=== PATIENT | male | born 1970 | race Caucasian/White ===

== ENCOUNTER 2016-07-23 08:24 | Inpatient (IN) | payer BC, OTHER ==
[2016-07-18 10:29] VITALS: BMI 24.0
--- NOTE | 2016-07-18 10:50 | PAT Medication Instructions ---
Service Date Jul 18, 2016. Current Home Medication List Ibuprofen (Ibuprofen), 4 TAB PO QID PRN for Pain Naproxen (Aleve), 220 MG PO QID Medication Instructions For Your Scheduled Surgery - Hold the following medications the morning of surgery: Ibuprofen (Ibuprofen), 4 TAB PO QID PRN for Pain Naproxen (Aleve), 220 MG PO QID Nothing to eat or drink after midnight No chewing tobacco after midnight If you have any questions please call us at [phone] (Serena Harrison PA-C ) or [phone] or [phone]
[2016-07-18 11:40] LABS: URINE APPEARANCE CLEAR (CLEAR); URINE BILIRUBIN NEG (NEG); URINE COLOR YELLOW; URINE NITRITE NEG (NEG); URINE SPECIFIC GRAVITY 1.019 (1.000-1.030); UROBILINOGEN NEG (NEG)
[2016-07-18 11:41] LABS: BASO % 0.7 %; BASO ABS # 0.06 K/uL (0-0.2); COMPLETE YES; EOS % 1.7 %; HEMATOCRIT 43.7 % (42-52); IG% 0.1 %; LYMPH % 25.8 %; LYMPH ABS # 2.27 K/uL (1.2-3.4); MEAN CELL VOLUME 93.6 fL (80-100); MEAN CORPUSCULAR HEMOGLOBIN 32.5 pg (25-34); MEAN CORPUSCULAR HGB CONC 34.8 g/dl (32-36); MEAN PLATELET VOLUME 12.2 fL (7.4-10.4); NEUT % 64.7 %; PLATELET COUNT 247 K/uL (130-400); RED BLOOD COUNT 4.67 M/uL (4.7-6.1); WHITE BLOOD COUNT 8.81 K/uL (4.8-10.8)
[2016-07-18 11:50] LABS: MANUAL MICROSCOPIC REQUIRED? NO; REVIEW REQ? NO
--- NOTE | 2016-07-18 12:00 | DIAGNOSTIC IMAGING REPORT ---
CHEST 2 VIEWS ROUTINE HISTORY: Preop. COMPARISON: Chest 03/29/2014. FINDINGS: The lungs are clear. Cardiac silhouette is normal in size. No pleural effusions. No pneumothorax. IMPRESSION: No acute process. Electronically signed by: Anselmo Quiñonez M.D. 07/18/2016 11:58 AM Dictated Date/Time: 07/18/2016 11:56 AM
[2016-07-18 12:12] LABS: CALCIUM 9.2 mg/dl (8.5-10.1); CREATININE 1.1 mg/dl (0.60-1.40); POTASSIUM 4.3 mmol/L (3.5-5.1)
--- NOTE | 2016-07-22 12:14 | HISTORY & PHYSICAL EXAMINATION ---
DATE OF ADMISSION: 07/23/2016 The patient is well known to us. He continues to have lower back pain. He has trialed facet injections with Dr. Diaz without any long-lasting relief. He has had a dorsal column stimulator trial with Dr. Diaz which did temporarily relieved his symptoms. He has taken anti-inflammatory medication for pain control. MEDICAL HISTORY: Significant for none. SURGICAL HISTORY: Significant for 2 back surgeries. ALLERGIES: None. MEDICATIONS: Anti-inflammatories. SOCIAL HISTORY: Denies alcohol. Denies tobacco. REVIEW OF SYSTEMS: Significant for chronic back pain. FAMILY HISTORY: Noncontributory. PHYSICAL EXAMINATION: HEENT: Speech appropriate. CARDIOPULMONARY: No gross abnormalities. ABDOMEN: Soft, nondistended. GENITOURINARY: Deferred. NEUROLOGIC: Cranial nerves II-XII grossly intact. MUSCULOSKELETAL: Ambulates with an independent steady gait. Lumbar incisions are well healed. Strength is intact bilateral lower extremities. ASSESSMENT: Post-laminectomy syndrome, lumbar spine. PLAN: At this point in time, he had a successful dorsal column stimulator trial. We will therefore proceed with spinal cord stimulator implant. This will result in T10 laminectomy as well. Risks, benefits, pros, cons, and alternatives were outlined in detailed. He wants to proceed with the above-mentioned surgical intervention.
[2016-07-23] VITALS (9 sets, daily range): BP systolic 95–133; BP diastolic 52–79; PULSE 57–84; TEMP 36.4–36.9; O2SAT 94–99; Ht 190.5 cm; Wt 89.7 kg
[~2016-07-23] VITALS: Ht 190.5 cm; Wt 89.7 kg
--- NOTE | 2016-07-23 07:25 | History & Physical Bridge Note ---
H&P Re-Evaluation Bridge Note: I have examined the patient, reviewed the History & Physical and in the interval since the performance of the History & Physical I have noted the following changes of clinical significance: No changes noted
[~2016-07-23 08:24] MED LIST: CEFAZOLIN IV 2,000 MG in DEXTROSE 5% 50ML 50 ML IV SCH; FENTANYL CITRATE INJ 50 MCG/1 ML 2 ML VIAL ONE; IBUP1CAP9 PO; LACTATED RINGER'S 1000ML 1,000 ML IV SCH; MIDAZOLAM HCL 1 MG/ML 2ML VIAL ONE; NAPR1TAB9 PO
[2016-07-23] MEDS ORDERED: MEPERIDINE HCL 25 MG/ML CARP IV PRN (09:00)
[2016-07-23] MEDS ORDERED: EpHEDrine SULFATE INJ 50 MG/ML AMP IV PRN (09:00)
[2016-07-23] MEDS ORDERED: PHENYLEPHRINE 100MCG/ML 5ML SYR IV PRN (09:00)
[2016-07-23] MEDS ORDERED: ONDANSETRON INJ 2 MG/ML 2 ML VIAL IV PRN (09:00)
[2016-07-23] MEDS ORDERED: LABETALOL HCL IV 5 MG/ML 20ML IV PRN (09:00)
[2016-07-23] MEDS ORDERED: FLUMAZENIL 0.1 MG/1 ML 10 ML VIAL IV PRN (09:00)
[2016-07-23] MEDS ORDERED: ATROPINE SULFATE 0.1 MG/ML 5ML SYR IV PRN (09:00)
[2016-07-23] MEDS ORDERED: HYDROmorphone INJ 2 MG/ML SYR/VIAL IV PRN ×2 (09:00→12:15)
[2016-07-23] MEDS ORDERED: NALOXONE HCL 0.4 MG/1 ML VIAL/CARP IV PRN (09:00)
[2016-07-23] MEDS ORDERED: NURSING VERBAL MED ORDER ONE ×2 (09:15→14:30)
[2016-07-23] MEDS: CEFAZOLIN 2000 MG/60 ML D5W IV SCH ×2 (09:43→11:30)
[2016-07-23] MEDS ORDERED: DEXAMETHASONE SOD INJ 4 MG/ML VIAL ONE (10:11)
[2016-07-23] MEDS ORDERED: NEOSTIGMINE METHYLSULFATE 1 MG/ML 10ML VIAL ONE (10:11)
[2016-07-23] MEDS ORDERED: LARYING-O-JET KIT (LTA) EXT ONE ×2 (10:11)
[2016-07-23] MEDS ORDERED: ONDANSETRON INJ 2 MG/ML 2 ML VIAL ONE (10:11)
[2016-07-23] MEDS ORDERED: GLYCOPYRROLATE INJ 0.2 MG/ML VIAL ONE (10:11)
[2016-07-23] MEDS ORDERED: PROPOFOL IV EMULSION 10 MG/ML 20 ML VIAL IV ONE (10:11)
[2016-07-23] MEDS ORDERED: LIDOCAINE HCL 2% 2 ML VIAL (20MG/ML) ONE (10:11)
[2016-07-23] MEDS ORDERED: ROCURONIUM BROMIDE 10 MG/ML 5 ML VIAL ONE (10:11)
[2016-07-23] MEDS ORDERED: HYDROmorphone INJ 2 MG/ML SYR/VIAL ONE (10:12)
--- NOTE | 2016-07-23 10:49 | [facility] Post Operative Brief Note ---
Immediate Operative Summary Operative Date Jul 23, 2016. Pre-Operative Diagnosis Post-laminectomy syndrome, lumbar spine Post-Operative Diagnosis Post-laminectomy syndrome, lumbar spine Procedure(s) Performed Spinal Cord Stimulator Trial Surgeon Dr. Duane Pedro Cotton Opener Surgeon(s) Dianna Mario PA-C Estimated Blood Loss 10 Findings none Specimens None per surgeon
[2016-07-23] MEDS ORDERED: BUPIVACAINE/EPINEPHRINE 0.5% MPF 1:200,000 30 ML VIAL INJ ONE (10:54)
[2016-07-23] MEDS ORDERED: [UNRECOGNIZED DRUG - MIXTURE] IV ONE (10:54)
[2016-07-23] MEDS ORDERED: BACITRACIN 50000 UNIT VIAL IR ONE (10:54)
[2016-07-23] MEDS ORDERED: MAGNESIUM HYDROXIDE SUSP 30 ML UDC PO PRN (11:00)
[2016-07-23] MEDS ORDERED: DO NOT ADMINISTER PNEUMOCOCCAL VACCINE PRN ×2 (11:00)
[2016-07-23] MEDS ORDERED: DO NOT ADMINISTER FLU VACCINE PRN ×3 (11:00)
[2016-07-23] MEDS ORDERED: LORAZEPAM INJ 1 MG in SYRINGE 0.5 ML IV PRN (11:00)
[2016-07-23] MEDS ORDERED: ACETAMINOPHEN 325 MG TAB PO PRN (11:00)
[2016-07-23] MEDS ORDERED: ACETAMINOPHEN 500 MG TAB PO PRN (11:00)
[2016-07-23] MEDS: FENTANYL CITRATE INJ 50 MCG/1 ML 2 ML VIAL IV PRN ×4 (11:09→11:30)
--- NOTE | 2016-07-23 11:27 | Anesthesiology Progress Note ---
Anesthesia Post Op Note Date & Time Jul 23, 2016 at 11:27 Vital Signs Pain Intensity: 4 Vital Signs Past 12 Hours Date Time Temp Pulse Resp B/P Pulse Ox O2 Delivery O2 Flow Rate FiO2 07/23/16 11:13 121/74 07/23/16 11:12 52 15 07/23/16 11:12 54 15 100 07/23/16 11:08 131/63 07/23/16 11:07 53 16 100 07/23/16 11:07 52 16 07/23/16 11:03 114/75 07/23/16 11:02 57 20 07/23/16 11:02 57 20 97 07/23/16 10:58 115/74 07/23/16 10:57 36.1 57 14 118/71 99 Mask 10 07/23/16 10:57 54 12 07/23/16 10:57 53 12 95 07/23/16 08:44 36.4 61 18 133/79 99 Room Air Notes Mental Status: alert / awake / arousable, participated in evaluation Pt Amnestic to Procedure: Yes Nausea / Vomiting: adequately controlled Pain: adequately controlled Airway Patency, RR, SpO2: stable & adequate BP & HR: stable & adequate Hydration State: stable & adequate Anesthetic Complications: no major complications apparent
--- NOTE | 2016-07-23 12:25 | OPERATIVE REPORT ---
DATE OF OPERATION: 07/23/2016 PREOPERATIVE DIAGNOSIS: Chronic persistent back and bilateral leg pain. POSTOPERATIVE DIAGNOSIS: Same. PROCEDURES PERFORMED: 1. T9 laminotomy. 2. Placement of 16-lead dorsal column stimulator paddle at T9 with attachment to external lead. SURGEON: Dr. Duane Pedro. ORDER MANAGER: Dainna Kumar PA-C. Due to the complex nature of the procedure, the entire surgery was performed with the equal opportunity assistant of DORITA Harrison. The golf player assistant, under direct supervision, was involved in the actual performance of all aspects of the surgical procedure including hemostasis, tissue retraction and incision, instrument management, patient positioning, and wound closure. ANESTHESIA: General. DISPOSITION: The patient awakened and taken to PACU in stable condition. HISTORY OF PATIENT'S PROBLEMS: This is a 46-year-old male well known to me that presents with the above-mentioned diagnosis. After failing an extensive course of nonoperative care, we elected to undergo a dorsal column stimulator trial. Risks, benefits, pros, cons, and alternatives were outlined in detail preoperatively. DESCRIPTION OF PROCEDURE: The patient was met with preoperatively, case discussed and all questions were addressed. At that point, the patient was taken back to operative suite and after undergoing successful general intubation by the department of anesthesia, he was placed in prone position on João table atop Gautam frame. All bony prominences were well padded and the eyes were inspected to ensure there was no external pressure placed upon them. At this point, the thoracolumbar spine was prepped and draped in normal sterile fashion. With the assistance of fluoroscopy, we identified the T9-T10 pedicles. He did elect at this point to begin the laminotomy at T9 to ensure that we had the cephalad leads on the paddle well above the C7 pedicles. This will allow us to adequately cover any actual back pain. Subsequently, T9 laminotomy was created and we were able to pass the dorsal column paddle lead without difficulty just above the T7 pedicles. We verified out position with fluoroscopy. We then attached the temporary leads to the implant, assessed their viability and then tunneled off to the left, passing the leads to the left flank externally. We then copiously irrigated the laminotomy site and closed the incision with 1 Vicryl in the fascia and 2-0 Vicryl subcutaneously, 4-0 Monocryl for final skin closure. The patient was awakened and taken to PACU in stable condition. I attest to the content of the Intraoperative Record and any orders documented therein. Any exceptio ns are noted below.
[2016-07-23] MEDS: LACTATED RINGER'S 1000ML 1,000 ML IV SCH (13:28)
--- NOTE | 2016-07-23 13:52 | DIAGNOSTIC IMAGING REPORT ---
Thoracic SPINE, INTRAOPERATIVE FLUOROSCOPY HISTORY: Spinal stimulator placement.. FLUOROSCOPY TIME: 8 seconds.. FINDINGS: Intraoperative fluoroscopy was provided for the thoracic spine. A single fluoroscopic spot image was obtained. There are stimulators wires noted within the lower thoracic spine. The exact level is difficult to determine given the small [id number]. IMPRESSION: Fluoroscopy provided for a placement of a spinal stimulator lead.. Electronically signed by: Anselmo Quiñonez M.D. 07/23/2016 1:50 PM Dictated Date/Time: 07/23/2016 1:48 PM
[2016-07-23] MEDS ORDERED: NICOTINE 21 MG/24 HR TDSY EXT ONE (14:45)
[2016-07-23] MEDS: OXYCODONE HCL IR 5 MG TAB (IMMEDIATE RELEASE) PO PRN ×2 (16:48→20:46)
[2016-07-23] MEDS: CEFAZOLIN IV 2,000 MG in DEXTROSE 5% 50ML 50 ML IV SCH (18:36)
[2016-07-23] MEDS: DOCUSATE SODIUM 100 MG CAP PO SCH (20:46)
[2016-07-23] MEDS: LORAZEPAM 1 MG TAB PO PRN (22:15)
[2016-07-24] MEDS: CEFAZOLIN IV 2,000 MG in DEXTROSE 5% 50ML 50 ML IV SCH ×2 (01:33→10:10)
[2016-07-24] MEDS: LACTATED RINGER'S 1000ML 1,000 ML IV SCH (01:34)
[2016-07-24] MEDS: OXYCODONE HCL IR 5 MG TAB (IMMEDIATE RELEASE) PO PRN ×3 (01:37→14:30)
[2016-07-24 03:19] VITALS: BP 95/51; PULSE 76; TEMP 36.7; O2SAT 95
[2016-07-24 06:56] VITALS: BP 115/70; PULSE 62; TEMP 36.5; O2SAT 99
[2016-07-24] MEDS ORDERED: NURSING VERBAL MED ORDER ONE ×2 (07:15→14:45)
[2016-07-24] MEDS: NICOTINE 21 MG/24 HR TDSY EXT SCH (07:58)
[2016-07-24] MEDS: HYDROmorphone INJ 1 MG/ML SYR IV PRN ×3 (08:29→21:05)
[2016-07-24] MEDS: DOCUSATE SODIUM 100 MG CAP PO SCH ×2 (08:29→21:41)
--- NOTE | 2016-07-24 10:27 | Anesthesiology Progress Note ---
Anesthesia Post Op Note Date & Time Jul 24, 2016 at 10:27 Vital Signs Vital Signs Past 12 Hours Date Time Temp Pulse Resp B/P Pulse Ox O2 Delivery O2 Flow Rate FiO2 07/24/16 08:00 Room Air 07/24/16 06:56 36.5 62 14 115/70 99 Room Air 07/24/16 03:19 36.7 76 16 95/51 95 Room Air 07/23/16 23:40 Room Air 07/23/16 23:16 36.9 82 16 95/52 97 Room Air Notes Mental Status: alert / awake / arousable, participated in evaluation Pt Amnestic to Procedure: Yes Nausea / Vomiting: adequately controlled Pain: adequately controlled Airway Patency, RR, SpO2: stable & adequate BP & HR: stable & adequate Hydration State: stable & adequate Anesthetic Complications: no major complications apparent
[2016-07-24 11:20] VITALS: BP 125/77; PULSE 58; TEMP 36.8; O2SAT 98
--- NOTE | 2016-07-24 12:43 | PROGRESS NOTE ---
DATE: 07/24/2016 Postop day 1. The patient has had significant results from his dorsal column stimulator trial. He has had it adjusted on several occasions and feels it is quite beneficial. Subsequently, we will make him n.p.o. after midnight tonight and plan for implantation of permanent implant tomorrow.
--- NOTE | 2016-07-24 13:30 | Anesthesiology Progress Note ---
Pre-OP Anesthesia Assessment Date of Note Jul 24, 2016. Review patient information reviewed, chart reviewed, labs reviewed, acceptable for surgery Notes The patient was seen and examined, the chart reviewed. He is acceptable for surgery tomorrow.
[2016-07-24] MEDS ORDERED: RXC5 PO (14:29)
--- NOTE | 2016-07-24 14:30 | Discharge Instructions ---
Discharge Instructions Admission Reason for Admission: Lumbar Post Laminectomy Syndrome Discharge Discharge Diagnosis / Problem: chronic back pain Discharge Goals Goal(s): Improve function Activity Recommendations Activity Limitations: per Instructions/Follow-up section . Current Hospital Diet Patient's current hospital diet: Regular Diet Discharge Diet Recommended Diet: Regular Diet Procedures Procedures Performed: Spinal Cord Stimulator Trial T-9 Laminectomy Pending Studies Studies pending at discharge: no Medical Emergencies . Who to Call and When: Medical Emergencies: If at any time you feel your situation is an emergency, please call 911 immediately. . Non-Emergent Contact Non-Emergency issues call your: Primary Care Provider . "Provider Documentation" section prepared by Duane Pedro. VTE Core Measure Inpt VTE Proph given/why not?: Ad Reese, SCD's
[2016-07-24] MEDS ORDERED: BISACODYL 10 MG SUPP PR ONE (14:45)
[2016-07-24 15:41] VITALS: BP 135/93; PULSE 79; TEMP 36.6; O2SAT 98
[2016-07-24 23:25] VITALS: BP 115/68; PULSE 75; TEMP 36.6; O2SAT 96
[2016-07-24] MEDS: LORAZEPAM 1 MG TAB PO PRN (23:46)
[2016-07-25] MEDS ORDERED: BISACODYL 5 MG TABEC PO PRN (06:00)
[2016-07-25] MEDS ORDERED: BISACODYL 10 MG SUPP PR PRN (06:00)
[2016-07-25] MEDS ORDERED: DEXAMETHASONE SOD INJ 4 MG/ML VIAL ONE (06:33)
[2016-07-25] MEDS ORDERED: LIDOCAINE HCL 2% 2 ML VIAL (20MG/ML) ONE (06:33)
[2016-07-25] MEDS ORDERED: ONDANSETRON INJ 2 MG/ML 2 ML VIAL ONE (06:34)
[2016-07-25] MEDS ORDERED: GLYCOPYRROLATE INJ 0.2 MG/ML VIAL ONE (06:34)
[2016-07-25] MEDS ORDERED: ROCURONIUM BROMIDE 10 MG/ML 5 ML VIAL ONE (06:34)
[2016-07-25] MEDS ORDERED: MIDAZOLAM HCL 1 MG/ML 2ML VIAL ONE (06:34)
[2016-07-25] MEDS ORDERED: FENTANYL CITRATE INJ 50 MCG/1 ML 2 ML VIAL ONE (06:34)
[2016-07-25] MEDS ORDERED: NEOSTIGMINE METHYLSULFATE 1 MG/ML 10ML VIAL ONE (06:34)
[2016-07-25] MEDS ORDERED: PROPOFOL IV EMULSION 10 MG/ML 20 ML VIAL IV ONE (06:34)
[2016-07-25] MEDS ORDERED: LARYING-O-JET KIT (LTA) EXT ONE ×2 (06:44)
[2016-07-25] MEDS ORDERED: SODIUM CHLORIDE 0.9% INJ 10 ML VIAL ONE (06:44)
[2016-07-25] MEDS ORDERED: KETAMINE HCL INJ 50 MG/ML 10 ML VIAL ONE (06:44)
[2016-07-25] MEDS ORDERED: CEFAZOLIN IV 2,000 MG/60 ML D5W IV ONE (07:21)
[2016-07-25] MEDS ORDERED: NURSING VERBAL MED ORDER STA (07:26)
[2016-07-25] MEDS ORDERED: BUPIVACAINE/EPINEPHRINE 0.5% MPF 1:200,000 30 ML VIAL INJ ONE (07:59)
[2016-07-25] MEDS ORDERED: BACITRACIN 50000 UNIT VIAL IR ONE (07:59)
--- NOTE | 2016-07-25 08:11 | [facility] Post Operative Brief Note ---
Immediate Operative Summary Operative Date Jul 25, 2016. Pre-Operative Diagnosis BACK PAIN Post-Operative Diagnosis SAME PREOP Procedure(s) Performed SPINAL CORD STIMULATOR PLACEMENT Surgeon DR. Dayday CORONA Nuclear Licensing Engineer Surgeon(s) Luis Felipe LEHMAN PAC Estimated Blood Loss 5mL Findings none Specimens NONE
[2016-07-25] MEDS ORDERED: ACETAMINOPHEN 325 MG TAB PO PRN (08:15)
[2016-07-25] MEDS ORDERED: HYDROmorphone INJ 1 MG/ML SYR IV PRN ×2 (08:15→08:45)
[2016-07-25] MEDS ORDERED: OXYCODONE HCL IR 5 MG TAB (IMMEDIATE RELEASE) PO PRN (08:15)
[2016-07-25] MEDS ORDERED: IBUPROFEN 600 MG TAB PO PRN (08:15)
--- NOTE | 2016-07-25 08:24 | OPERATIVE REPORT ---
DATE OF OPERATION: 07/25/2016 PREOPERATIVE DIAGNOSES: Failed laminectomy syndrome, chronic persistent back and leg pain. POSTOPERATIVE DIAGNOSES: Same. PROCEDURE PERFORMED: Permanent implantation of dorsal column stimulator leads with rechargeable battery. SURGEON: Dr. Duane Pedro. FINANCIAL COACH: Patrick Garg PA-C. Due to the complex nature of the procedure, the entire surgery was performed with the aquatics assistant department head of DORITA Thomas. The front desk assistant, under direct supervision, was involved in the actual performance of all aspects of the surgical procedure including hemostasis, tissue retraction and incision, instrument management, patient positioning, and wound closure. ANESTHESIA: General. DISPOSITION: The patient awakened and taken to PACU in stable condition. HISTORY OF PATIENT'S PROBLEMS: A 46-year-old male well known to me who underwent a trial for dorsal column stimulator paddle lead placement earlier this week. He responded very well having undergone several adjustments to his paddle lead, subsequently elected to undergo permanent implantation. Risks, benefits, pros, cons, and alternatives were outlined in detail preoperatively. DESCRIPTION OF PROCEDURE: The patient was met with preoperatively, case discussed and all questions were addressed. At that point, the patient was taken back to operative suite and after undergoing successful general intubation by the department of anesthesia was placed in prone position on João table with a chest pad and hip bolsters. The thoracolumbar spine was prepped and draped in normal sterile fashion. The previous incision site for the T10 laminotomy site was exposed, copiously irrigated with antibiotic solution, the temporary leads were detached and remove externally. Then we placed approximately 5 cm incision over the right flank and created a pocket for the battery. The tunneler was used to pass the leads down to the pocket. The leads were then attached to the battery. It was tested for to ensure it was working appropriately. The battery was then placed in the pocket and both sides were copiously irrigated and closed with 1-0 Vicryl in the fascia, 2-0 Vicryl subcutaneously, 4-0 Monocryl for final skin closure. Steri-Strips and sterile dressing placed. The patient was awakened and taken to PACU in stable condition. I attest to the content of the Intraoperative Record and any orders documented therein. Any exceptio ns are noted below.
[2016-07-25] MEDS ORDERED: FENTANYL CITRATE INJ 50 MCG/1 ML 2 ML VIAL IV PRN (08:45)
[2016-07-25] MEDS ORDERED: EpHEDrine SULFATE INJ 50 MG/ML AMP IV PRN (08:45)
[2016-07-25] MEDS ORDERED: ONDANSETRON INJ 2 MG/ML 2 ML VIAL IV PRN (08:45)
[2016-07-25] MEDS ORDERED: ATROPINE SULFATE 0.1 MG/ML 5ML SYR IV PRN (08:45)
[2016-07-25] MEDS ORDERED: POLYETHYLENE (MIRALAX) 17 GM PACK PO SCH (09:00)
--- NOTE | 2016-07-25 09:27 | Anesthesiology Progress Note ---
Anesthesia Post Op Note Date & Time Jul 25, 2016 at 09:28 Vital Signs Pain Intensity: 0 Vital Signs Past 12 Hours Date Time Temp Pulse Resp B/P Pulse Ox O2 Delivery O2 Flow Rate FiO2 07/25/16 09:15 36.0 60 12 124/74 95 Room Air 07/25/16 09:05 62 12 128/73 96 Room Air 07/25/16 08:55 63 12 128/71 100 Mask 10 07/25/16 08:45 61 12 125/81 100 Mask 10 07/25/16 08:38 36.2 67 14 119/79 100 Mask 10 07/24/16 23:25 36.6 75 17 115/68 96 Room Air Notes Mental Status: alert / awake / arousable, participated in evaluation Pt Amnestic to Procedure: Yes Nausea / Vomiting: adequately controlled Pain: adequately controlled Airway Patency, RR, SpO2: stable & adequate BP & HR: stable & adequate Hydration State: stable & adequate Anesthetic Complications: no major complications apparent
[2016-07-25 10:10] VITALS: BP 122/77; PULSE 71; O2SAT 98
[2016-07-25 10:40] VITALS: BP 119/75; PULSE 62; O2SAT 98
[2016-07-25] MEDS: DOCUSATE SODIUM 100 MG CAP PO SCH (10:51)
[2016-07-25] MEDS: OXYCODONE HCL IR 5 MG TAB (IMMEDIATE RELEASE) PO PRN (10:51)
[2016-07-25] MEDS: NICOTINE 21 MG/24 HR TDSY EXT SCH (10:53)
[2016-07-25 11:29] VITALS: BP 119/75; PULSE 62; TEMP 36; O2SAT 98
[2016-07-25 12:40] VITALS: BP 117/75; PULSE 71; O2SAT 96
[2016-07-25] MEDS: LORAZEPAM 1 MG TAB PO PRN (13:03)
--- NOTE | 2016-07-25 14:20 | DISCHARGE SUMMARY ---
PRINCIPAL DIAGNOSIS: Chronic persistent back pain, failed laminectomy syndrome. HOSPITAL COURSE FOLLOWS: On 07/23/2016 the patient underwent dorsal column stimulator trial placement, tolerated this well. He was getting significant results. Subsequently, we elected for permanent implantation on 07/25/2016. He tolerated this well and was subsequently discharged home. Discharge orders and instructions found on the chart for further review.
== END 2016-07-25 13:50 | disposition home or self-care (01) | DRG 518 ==
LOC: ENRESERVDT → ENRESERVTM → C.ACU 08:24 → C.MSW 09:00
PROVIDERS: ADMIT Orthopaedic Surgery Orthopaedic Surgery of the Spine; ATTEND Orthopaedic Surgery Orthopaedic Surgery of the Spine
PROC: 00HV0MZ Insertion of Neurostimulator Lead into Spinal Cord, Open Approach (ICD-10-PCS; principal; 2016-07-23 10:05)
PROC: 0JH70CZ Insertion of Single Array Rechargeable Stimulator Generator into Back Subcutaneous Tissue and Fascia, Open Approach (ICD-10-PCS; 2016-07-25)
DX: M96.1 Postlaminectomy syndrome, not elsewhere classified (principal); G89.29 Other chronic pain

== ENCOUNTER → 2018-02-15 | Outpatient (CLI) | payer OTHER ==
[~2018-02-15] MED LIST changes: -CEFAZOLIN IV 2,000 MG in DEXTROSE 5% 50ML 50 ML IV SCH; -FENTANYL CITRATE INJ 50 MCG/1 ML 2 ML VIAL ONE; -IBUP1CAP9 PO; +IBUP200C80 PO; -LACTATED RINGER'S 1000ML 1,000 ML IV SCH; -MIDAZOLAM HCL 1 MG/ML 2ML VIAL ONE; +RXC5 PO
[2018-02-15 08:09] LABS: BASO % 0.5 %; BASO ABS # 0.05 K/uL (0-0.2); EOS ABS # 0.29 K/uL (0-0.5); HEMATOCRIT 46.3 % (42-52); HEMOGLOBIN 15.9 g/dL (14.0-18.0); IG# 0.03 K/uL (0.00-0.02); LYMPH % 22.3 %; LYMPH ABS # 2.13 K/uL (1.2-3.4); MEAN CELL VOLUME 95.1 fL (80-100); MEAN CORPUSCULAR HEMOGLOBIN 32.6 pg (25-34); MEAN PLATELET VOLUME 12.1 fL (7.4-10.4); MONO % 8.5 %; MONO ABS # 0.81 K/uL (0.11-0.59); NEUT % 65.4 %; NEUT ABS # 6.26 K/uL (1.4-6.5); PLATELET COUNT 246 K/uL (130-400); RED CELL DISTRIBUTION WIDTH SD 44.8 fL (36.4-46.3); WHITE BLOOD COUNT 9.57 K/uL (4.8-10.8)
[2018-02-15 08:10] LABS: MEAN CORPUSCULAR HGB CONC 34.3 g/dl (32-36)
[2018-02-15 08:36] LABS: BLOOD UREA NITROGEN 11 mg/dl (7-18); CALCIUM 9.4 mg/dl (8.5-10.1); CARBON DIOXIDE 28 mmol/L (21-32); CREATININE 1.02 mg/dl (0.60-1.40); GLUCOSE 98 mg/dl (70-99); POTASSIUM 4.6 mmol/L (3.5-5.1); SODIUM 142 mmol/L (136-145)
--- NOTE | 2018-02-15 09:08 | DIAGNOSTIC IMAGING REPORT ---
TWO VIEW CHEST CLINICAL HISTORY: Preoperative examination. FINDINGS: PA and lateral chest radiographs are compared to study dated 07/18/2016. Correlation is made with chest CT dated 03/21/2013. The cardiomediastinal silhouette is unremarkable. Chronic interstitial thickening is similar to previous. No airspace consolidation or pleural effusion is identified. There is no pneumothorax. The bony thorax appears intact. Neurostimulator leads project over the mid thoracic spine. IMPRESSION: No active disease in the chest. Electronically signed by: Claude Hinojosa M.D. 02/15/2018 9:07 AM Dictated Date/Time: 02/15/2018 9:06 AM
== END | disposition home or self-care (01) ==
LOC: C.CPL 07:46
PROVIDERS: ATTEND Orthopaedic Surgery Orthopaedic Surgery of the Spine
DX: M54.12 Radiculopathy, cervical region (principal)

== ENCOUNTER 2022-12-30 21:52 | Observation (INO) ==
[2022-12-30] MEDS ORDERED: SODIUM CHLORIDE 0.9% 1000ML 1,000 ML IV SCH (22:15)
--- NOTE | 2022-12-30 22:16 | Emergency Department Note ---
Impression & Plan Syncope, Collapse, Alcohol abuse ED Provider Note NAME: RAFAT SNIDER AGE: 52 SEX: M : 1970 ARRIVES VIA: Ambulance INFORMANT: [Patient][ems, family] ED PROVIDER(S): [Claude Spears MD] CHIEF COMPLAINT: Syncope HISTORY OF PRESENT ILLNESS: The patient is a 52-year-old male with a history of chronic back and neck pain. He has a TENS unit. The patient had at least 6 beers this evening and apparently felt dizzy and lightheaded and as per family, passed out. He had multiple syncopal events and at one point, the family felt he was not breathing. They started CPR. When EMS arrived, the patient was breathing and CPR was not continued. As per EMS, the patient had a few syncopal spells while in the ambulance. No seizure activity reported. The patient states that he was in baseline health today. He has not had cough, cold or congestion. He has no known heart disease, he does not really have a history of syncope. The patient currently denies any chest pain or dyspnea. He did not feel chest pain or shortness of breath prior to passing out. PMHx/PSHx: See Below SOCIAL HISTORY: See Below. PHYSICAL EXAM: GENERAL: Patient is in no acute distress. HEENT: No acute trauma, normocephalic atraumatic, mucous membranes moist, no nasal congestion. NECK: No stridor, no adenopathy, no meningismus, trachea is midline. LUNGS: Clear to auscultation bilaterally, no wheeze, no rhonchi, breath sounds equal. HEART: Without murmurs gallops or rubs, regular rate and rhythm. ABDOMEN: Soft, nontender, bowel sounds positive, no peritonitis. EXTREMITIES: No cyanosis or edema, full range of motion of all the joints without pain or difficulty, no signs for acute trauma. NEUROLOGIC: Oriented x 3, no acute motor or sensory deficits, no focal weakness. Slight speech slur noted consistent with his alcohol use this evening. SKIN: No rash, no jaundice, no diaphoresis. DIFFERENTIAL DIAGNOSIS: Syncope, alcohol abuse, dehydration, dysrhythmia, electrolyte imbalance, seiz ure, intracranial bleeding, renal or liver failure, among others. EMERGENCY DEPARTMENT COURSE/PROCEDURES: Prior/Outside records reviewed: EMS notes. ECG per my interpretation: Indication was syncope. The ECG shows a normal sinus rhythm with a rate of 76. There is no ST elevation, no PVCs. The QTc is 418. Continuous Cardiac Monitoring per my interpretation: An order was placed for continuous cardiac monitoring. The monitor shows a rate of 78 with normal sinus rhythm. Critical Care Note: I have personally spent 47 minutes of critical care time in the direct management of this patient. This includes bedside care, interpretation of diagnostic studies, and testing, discussion with consultants, patient, and family members, and other required patient management activities. This 47 minutes is in excess of all separately billable procedures. MEDICAL DECISION MAKING: No leukocytosis or concerning anemia. There is a normal platelet count. There is no coagulopathy. No renal failure or significant electrolyte abnormality. No concerning liver enzyme elevation. ECG shows a normal sinus rhythm, no ischemia. Cardiac enzyme testing x1 is not consistent with acute cardiac injury. No evidence for pancreatitis by our testing. The patient appeared to be in a euthyroid state. Urinalysis did not show infection. COVID test returned negative. Alcohol level returned quite high at 340. Chest x-ray per my review did not show mediastinal widening, pneumonia or pneumothorax. Brain CT showed no acute bleed or mass effect. Patient presents after syncope and collapse. He had multiple syncopal spells as per EMS and our nursing staff. His family felt he was not breathing at 1 point and actually started CPR. Currently, the patient is resting comfortably. He has received a 1 L saline bolus. He has been ordered for a liter of IV saline with multivitamins, thiamine and folate. I do think the patient requires a hospital stay, he requires monitoring and repeat troponin testing. As to whether he truly stopped breathing or simply just passed out from too much alcohol is not yet completely clear. I spoke with the patient and his family, I spoke with case management, the on- call hospitalist was consulted. DISPOSITION: Patient's presentation and findings warrant a hospital stay and further work-up. Past Med/Surg History Medical History Chronic low back pain with bilateral sciatica Degenerative disc disease GERD (gastroesophageal reflux disease) controlled History of COVID-19 hx of 2019--mild symptoms, no symptoms now Hyperlipidemia Osteoarthritis Spinal cord stimulator status IMPLANTED APRIL 2020 (AWARE OF REMOTE) Surgical History History of back surgery (~05/10/20) revision T10 laminectomy/removal spinal cord stimulator/placement 16 lead spinal cord stimulator History of esophagogastroduodenoscopy (EGD) last 09/19/20 @ [facility] History of lumbar surgery lumbar surgery x3 (+ fusion) S/P cervical spinal fusion x2 (good ROM) S/P insertion of spinal cord stimulator [place] teeth removed Family History Other No family history of adverse response to anesthesia No significant family history Social History Smoking Status: Current every day smoker Tobacco Type: Cigarettes Cigarettes Per Day: 1 ppd; Second Hand Exposure: No; Do You Dip or Chew Tobacco: No; Hx Alcohol Use: Yes Alcohol type: beer Hx Substance Use: No Preferred Language: Bahamian Communication Ability: Effective Visual Impairment: No Limitations [employer] Required: No Beliefs That Will Affect Care: None Current Living Situation: Spouse and Family Current Living Situation Comment: Lives with and daughter Feels Safe at Home: Yes Assistive Devices: Cane Allergies Allergies Allergy/AdvReac Type Severity Reaction Status Date / Time No Known Allergies Allergy Unknown Verified 12/30/22 23:02 Home Meds Home Medications Medication Instructions Recorded Confirmed atorvastatin 40 mg tablet 40 mg PO HS 04/19/20 12/30/22 omeprazole 20 mg capsule,delayed 20 mg PO QAM 04/19/20 12/30/22 release Results & Data (ED) Vital Signs Vital Signs - 24 hr 12/30/22 22:05 12/30/22 23:03 12/30/22 22:41 Temperature 36.4 C L Temperature Source Oral Pulse Rate 85 76 80 Respiratory Rate 20 16 Respiratory Effort / Characteristics Other Respiratory Depth Normal Blood Pressure 137/90 137/90 Blood Pressure Mean 105 105 Pulse Oximetry 98 98 95 Oxygen Delivery Method Nasal Cannula Nasal Cannula Nasal Cannula Oxygen Flow Rate 6 6 6 Sepsis New/Unexplained Change in Mental Status No Sepsis Action Taken by Nursing No Action Required 12/30/22 23:30 Temperature Temperature Source Pulse Rate 86 Respiratory Rate 14 Respiratory Effort / Characteristics Respiratory Depth Blood Pressure Blood Pressure Mean Pulse Oximetry 96 Oxygen Delivery Method Nasal Cannula Oxygen Flow Rate 6 Sepsis New/Unexplained Change in Mental Status Sepsis Action Taken by [facility] Medications Current Medication List: was personally reviewed by me Laboratory Data Attestation: I reviewed the patient's lab results. 12/30/22 22:30 12/30/22 22:30 Lab Results 12/30/22 12/30/22 12/30/22 Range/Units 22:02 22:30 22:30 WBC 9.88 (4.8-10.8) K/ul RBC 4.15 L (4.70-6.10) M/uL Hgb 14.3 (14.0-18.0) g/dl Hct 39.1 L (42.0-52.0) % MCV 94.2 (80.0-100.0) fL MCH 34.5 H (25.0-34.0) pg MCHC 36.6 H (32.0-36.0) g/dL RDW Std Deviation 42.2 (36.4-46.3) fL RDW Coeff of Martina 12.1 (11.5-14.5) % Plt Count 224 (130-400) K/uL MPV 11.2 (9.4-12.4) fL Immature Gran % (Auto) 0.2 % Neut % (Auto) 54.9 % Lymph % (Auto) 35.1 % [place]ades % (Auto) 6.7 % Eos % (Auto) 2.1 % Baso % (Auto) 1.0 % Neut # (Auto) 5.42 (1.40-6.50) K/uL Lymph # (Auto) 3.47 H (1.2-3.4) K/uL [place]ades # (Auto) 0.66 H (0.11-0.59) K/uL Eos # (Auto) 0.21 (0-0.50) K/uL Baso # (Auto) 0.10 (0-0.2) K/uL Immature Gran # (Auto) 0.02 (0.01-0.20) K/uL PT 10.0 (9.0-12.0) Seconds INR 0.9 (0.9-1.1) APTT 25.0 (21.0-31.0) Seconds PTT Ratio 0.9 Sodium (136-145) mmol/L Potassium (3.5-5.1) mmol/L Chloride (98-107) mmol/L Carbon Dioxide (21-32) mmol/L Anion Gap (3-11) BUN (6-23) mg/dl Creatinine (0.6-1.4) mg/dl Est Cr Clr Drug Dosing ml/min Est GFR ( Amer) ml/min Est GFR (Non-Af Amer) ml/min BUN/Creatinine Ratio (10-20) Glucose (70-99(Fasting)) mg/dl POC Glucose 99 (70-99) mg/dl Calcium (8.6-10.3) mg/dl Magnesium (1.7-2.4) mg/dl Total Bilirubin (0.2-1.0) mg/dl AST (13-39) U/L ALT (7-52) U/L Alkaline Phosphatase (34-104) U/L Troponin I High Sens (0-20) pg/ml Total Protein (6.0-8.3) gm/dl Albumin (3.4-5.0) gm/dl Globulin (2.5-4.0) gm/dl Albumin/Globulin Ratio (0.9-2) Lipase (11-82) U/L TSH (0.300-4.500) uIu/ml Urine Color Urine Appearance (Clear) Urine pH (4.5-7.5) Ur Specific [place] (1.000-1.030) Urine Protein (Negative) Urine Glucose (UA) (Negative) Urine Ketones (Negative) Urine Blood (Negative) Urine Nitrite (Negative) Urine Bilirubin (Negative) Urine Urobilinogen (Negative) Ur Leukocyte Esterase (Negative) Ethyl Alcohol mg/dL (<10.0) mg/dl SARS-CoV-2, RNA, NAAT (NEGATIVE) 12/30/22 12/30/22 12/30/22 Range/Units 22:30 22:30 22:30 WBC (4.8-10.8) K/ul RBC (4.70-6.10) M/uL Hgb (14.0-18.0) g/dl Hct (42.0-52.0) % MCV (80.0-100.0) fL MCH (25.0-34.0) pg MCHC (32.0-36.0) g/dL RDW Std Deviation (36.4-46.3) fL RDW Coeff of Martina (11.5-14.5) % Plt Count (130-400) K/uL MPV (9.4-12.4) fL Immature Gran % (Auto) % Neut % (Auto) % Lymph % (Auto) % [place] % (Auto) % Eos % (Auto) % Baso % (Auto) % Neut # (Auto) (1.40-6.50) K/uL Lymph # (Auto) (1.2-3.4) K/uL [place] # (Auto) (0.11-0.59) K/uL Eos # (Auto) (0-0.50) K/uL Baso # (Auto) (0-0.2) K/uL Immature Gran # (Auto) (0.01-0.20) K/uL PT (9.0-12.0) Seconds INR (0.9-1.1) APTT (21.0-31.0) Seconds PTT Ratio Sodium 138 (136-145) mmol/L Potassium 3.5 (3.5-5.1) mmol/L Chloride 105 (98-107) mmol/L Carbon Dioxide 21 (21-32) mmol/L Anion Gap 12 H (3-11) BUN 10 (6-23) mg/dl Creatinine 0.97 (0.6-1.4) mg/dl Est Cr Clr Drug Dosing 109.4 ml/min Est GFR ( Amer) 103.6 ml/min Est GFR (Non-Af Amer) 89.4 ml/min BUN/Creatinine Ratio 10.3 (10-20) Glucose 95 (70-99(Fasting)) mg/dl POC Glucose (70-99) mg/dl Calcium 8.7 (8.6-10.3) mg/dl Magnesium 2.1 (1.7-2.4) mg/dl Total Bilirubin 0.3 (0.2-1.0) mg/dl AST 27 (13-39) U/L ALT 23 (7-52) U/L Alkaline Phosphatase 51 (34-104) U/L Troponin I High Sens 3.7 (0-20) pg/ml Total Protein 6.7 (6.0-8.3) gm/dl Albumin 4.4 (3.4-5.0) gm/dl Globulin 2.3 L (2.5-4.0) gm/dl Albumin/Globulin Ratio 1.9 (0.9-2) Lipase 34 (11-82) U/L TSH 2.511 (0.300-4.500) uIu/ml Urine Color Urine Appearance (Clear) Urine pH (4.5-7.5) Ur Specific [place] (1.000-1.030) Urine Protein (Negative) Urine Glucose (UA) (Negative) Urine Ketones (Negative) Urine Blood (Negative) Urine Nitrite (Negative) Urine Bilirubin (Negative) Urine Urobilinogen (Negative) Ur Leukocyte Esterase (Negative) Ethyl Alcohol mg/dL 341.0 H (<10.0) mg/dl SARS-CoV-2, RNA, NAAT (NEGATIVE) 12/30/22 12/31/22 Range/Units 22:41 00:00 WBC (4.8-10.8) K/ul RBC (4.70-6.10) M/uL Hgb (14.0-18.0) g/dl Hct (42.0-52.0) % MCV (80.0-100.0) fL MCH (25.0-34.0) pg MCHC (32.0-36.0) g/dL RDW Std Deviation (36.4-46.3) fL RDW Coeff of Martina (11.5-14.5) % Plt Count (130-400) K/uL MPV (9.4-12.4) fL Immature Gran % (Auto) % Neut % (Auto) % Lymph % (Auto) % [place] % (Auto) % Eos % (Auto) % Baso % (Auto) % Neut # (Auto) (1.40-6.50) K/uL Lymph # (Auto) (1.2-3.4) K/uL [place] # (Auto) (0.11-0.59) K/uL Eos # (Auto) (0-0.50) K/uL Baso # (Auto) (0-0.2) K/uL Immature Gran # (Auto) (0.01-0.20) K/uL PT (9.0-12.0) Seconds INR (0.9-1.1) APTT (21.0-31.0) Seconds PTT Ratio Sodium (136-145) mmol/L Potassium (3.5-5.1) mmol/L Chloride (98-107) mmol/L Carbon Dioxide (21-32) mmol/L Anion Gap (3-11) BUN (6-23) mg/dl Creatinine (0.6-1.4) mg/dl Est Cr Clr Drug Dosing ml/min Est GFR ( Amer) ml/min Est GFR (Non-Af Amer) ml/min BUN/Creatinine Ratio (10-20) Glucose (70-99(Fasting)) mg/dl POC Glucose (70-99) mg/dl Calcium (8.6-10.3) mg/dl Magnesium (1.7-2.4) mg/dl Total Bilirubin (0.2-1.0) mg/dl AST (13-39) U/L ALT (7-52) U/L Alkaline Phosphatase (34-104) U/L Troponin I High Sens (0-20) pg/ml Total Protein (6.0-8.3) gm/dl Albumin (3.4-5.0) gm/dl Globulin (2.5-4.0) gm/dl Albumin/Globulin Ratio (0.9-2) Lipase (11-82) U/L TSH (0.300-4.500) uIu/ml Urine Color Yellow Urine Appearance Clear (Clear) Urine pH 5.0 (4.5-7.5) Ur Specific [place] 1.004 (1.000-1.030) Urine Protein Negative (Negative) Urine Glucose (UA) Negative (Negative) Urine Ketones Negative (Negative) Urine Blood Negative (Negative) Urine Nitrite Negative (Negative) Urine Bilirubin Negative (Negative) Urine Urobilinogen Negative (Negative) Ur Leukocyte Esterase Negative (Negative) Ethyl Alcohol mg/dL (<10.0) mg/dl SARS-CoV-2, RNA, NAAT NEGATIVE (NEGATIVE) Administered Medications Thiamine HCl 100 mg/ Folic (Acid 1 mg/ Sodium Chloride) 1,001.2 mls @ 500 mls/hr IV .Q2H1M STA; Protocol Stop: 12/31/22 01:36 Last Admin: 12/31/22 00:07 Dose: 500 mls/hr Documented By: AXEL Discontinued Medications Sodium Chloride (Nss 1000ml) 1,000 mls @ 999 mls/hr IV .Q1H1M ISIDRA Stop: 12/30/22 23:15 Last Infusion: 12/30/22 23:36 Dose: 0 mls/hr Documented By: Admin: 12/30/22 22:33 Dose: 999 mls/hr Documented By: AXEL Multivitamins/Minerals (Cerovite Adv Formula Tab) 1 tab PO ONE STA Stop: 12/30/22 23:37 Last Admin: 12/31/22 00:07 Dose: 1 tab Documented By: AXEL Imaging Data My Impression: Chest x-ray per my review: There is no mediastinal widening, pneumonia or pneumothorax. No CHF. Radiologist's Impression: Head CT 12/30/22 22:10 Exam(s): CT HEAD Without Contrast EXAM: CT Head Without Intravenous Contrast CLINICAL HISTORY: Reason for exam: syncope. TECHNIQUE: Axial computed tomography images of the head/brain without intravenous contrast. CTDI is 36.67 mGy and DLP is 624.41 mGy-cm. Automated exposure control was utilized for the study. A dose lowering technique was utilized adhering to the principles of ALARA. COMPARISON: No relevant prior studies available. FINDINGS: No acute intracranial hemorrhage. No midline shift or mass effect. The territorial couch-white matter differentiation is maintained throughout. The ventricles and sulci are commensurate with age. The visualized orbits appear grossly unremarkable. The calvarium is intact. Mucous retention cyst in the RIGHT maxillary sinus. IMPRESSION: No acute intracranial hemorrhage, midline shift, or mass effect. Electronically signed by: Ramses Goldberg MD 12/30/22 22:53 PM Discharge Plan Visit Data Chief Complaint: Syncope ED Provider: Claude Spears Discharge Problem: Syncope, Collapse, Alcohol abuse Patient Disposition: Admitted As Inpatient Condition: Fair Forms Stand Alone Forms: My [facility] Prescriptions Prescriptions: No Action atorvastatin 40 mg Tablet 40 mg PO HS omeprazole 20 mg Capsule,Delayed Release(Dr/Ec) 20 mg PO QAM Referrals Referrals: Yordy Helton [facility] [Primary Care Provider] -
--- NOTE | 2022-12-30 22:53 | CT Scan Report ---
Exam(s): CT HEAD Without Contrast EXAM: CT Head Without Intravenous Contrast CLINICAL HISTORY: Reason for exam: syncope. TECHNIQUE: Axial computed tomography images of the head/brain without intravenous contrast. CTDI is 36.67 mGy and DLP is 624.41 mGy-cm. Automated exposure control was utilized for the study. A dose lowering technique was utilized adhering to the principles of ALARA. COMPARISON: No relevant prior studies available. FINDINGS: No acute intracranial hemorrhage. No midline shift or mass effect. The territorial couch-white matter differentiation is maintained throughout. The ventricles and sulci are commensurate with age. The visualized orbits appear grossly unremarkable. The calvarium is intact. Mucous retention cyst in the RIGHT maxillary sinus. IMPRESSION: No acute intracranial hemorrhage, midline shift, or mass effect. Electronically signed by: Ramses Goldberg MD 12/30/22 22:53 PM
[2022-12-30 23:00] LABS: Eosinophils # (auto) 0.21 K/uL (0-0.50); Eosinophils % (auto) 2.1 %; Hematocrit (blood only) 39.1 % (42.0-52.0); Hemoglobin 14.3 g/dl (14.0-18.0); Immature Granulocytes # (auto) 0.02 K/uL (0.01-0.20); Immature Granulocytes % (auto) 0.2 %; Lymphocytes # (auto) 3.47 K/uL (1.2-3.4); Lymphocytes % (auto) 35.1 %; Mean Corpuscular Hemoglobin 34.5 pg (25.0-34.0); Mean Corpuscular Hgb Conc 36.6 g/dL (32.0-36.0); Mean Corpuscular Volume 94.2 fL (80.0-100.0); Mean Platelet Volume 11.2 fL (9.4-12.4); Monocytes # (auto) 0.66 K/uL (0.11-0.59); Monocytes % (auto) 6.7 %; Neutrophils # (auto) 5.42 K/uL (1.40-6.50); Neutrophils % (auto) 54.9 %; Platelet Count 224 K/uL (130-400); RDW Coefficient of Variation 12.1 % (11.5-14.5); RDW Standard Deviation 42.2 fL (36.4-46.3); Red Blood Count 4.15 M/uL (4.70-6.10); White Blood Count 9.88 K/ul (4.8-10.8)
[2022-12-30 23:08] LABS: Appearance Urine Clear (Clear); Bilirubin Urine Negative (Negative); Blood Urine Negative (Negative); Color Urine Yellow; Glucose Urine UA Negative (Negative); Ketones Urine Negative (Negative); Leukocyte Esterase Urine Negative (Negative); Nitrite Urine Negative (Negative); Protein Urine Negative (Negative); Specific Gravity Urine 1.004 (1.000-1.030); Urobilinogen Urine Negative (Negative)
[2022-12-30 23:15] LABS: Albumin Globulin Ratio 1.9 (0.9-2); Albumin Level 4.4 gm/dl (3.4-5.0); BUN Creatinine Ratio 10.3 (10-20); Bilirubin,Total 0.3 mg/dl (0.2-1.0); Calcium 8.7 mg/dl (8.6-10.3); Creatinine Clr Calc Pharmacy 109.4 ml/min; Est GFR (African American) 103.6 ml/min; Est GFR (Non-African American) 89.4 ml/min; Globulin 2.3 gm/dl (2.5-4.0); Magnesium 2.1 mg/dl (1.7-2.4); Potassium 3.5 mmol/L (3.5-5.1); Total Protein 6.7 gm/dl (6.0-8.3)
[2022-12-30 23:21] LABS: Troponin I High Sensitivity 3.7 pg/ml (0-20)
[2022-12-30 23:25] LABS: INR 0.9 (0.9-1.1); Partial Thromboplastin Ratio 0.9
[2022-12-30] MEDS ORDERED: THIAMINE HCL 100 MG, FOLIC ACID 1 MG in SODIUM CHLORIDE 0.9% 1000ML 1,000 ML IV STA (23:36)
[2022-12-30] MEDS ORDERED: CEROVITE ADV FORMULA TAB PO STA (23:36)
[2022-12-31] MEDS ORDERED: Ativan IV Alcohol Withdrawal--Active Protocol IV PRN (04:26)
[2022-12-31] MEDS ORDERED: ONDANSETRON INJ 2 MG/ML 2 ML VIAL IV PRN (04:26)
[2022-12-31] MEDS ORDERED: LORazepam 2 MG/1 ML VIAL IV PRN ×3 (04:26)
--- NOTE | 2022-12-31 04:54 | History & Physical Report ---
Date of Service December 31, 2022 Assessment & Plan (1) Syncope and collapse: (2) Alcohol abuse: (3) Alcohol intoxication: (4) GERD (gastroesophageal reflux disease): (5) Chronic low back pain with bilateral sciatica: (6) Hyperlipidemia: (7) Spinal cord stimulator status: Plan Syncope and collapse- Status post chest compressions by family in the field, due to their concern regarding patient not appearing to be breathing The patient will be admitted to telemetry for serial cardiac enzymes, serial EKG's, cardiac rhythm monitoring and complete echo N.p.o. status Alcohol intoxication and unresponsiveness- alcohol level 341.0 Laboratories otherwise normal Thiamine 100 mg IV Folic acid 1 mg IV Received normal saline 1 L in the ED NSS + KCl 20 mill equivalents at 150 mils per hour GERD- Holding oral omeprazole famotidine 20 mg IV every 12 hours hyperlipidemia- holding atorvastatin Admission and Anticipated Discharge Date Admission Date: December 31, 2022 History of Present Illness Chief Complaint: The patient presents to the emergency department after having a dizzy spell with lightheadedness after drinking at least 6 beers today. the family reports he then passed out, appeared to not be breathing, they began to do chest compressions, called EMS, who noted that the patient appeared to be breathing adequately when they got there, and did not continue chest compressions. EMS reports to the ED that the patient appeared to have 2 episodes of not breathing in route to the hospital. the patient himself is unresponsive, and not able to contribute to HPI or ROS Primary Care Provider: RICK Harris HPI and ROS are as noted above, as patient is not able to contribute due to unresponsiveness due to alcohol intoxication Allergies Allergy/AdvReac Type Severity Reaction Status Date / Time No Known Allergies Allergy Unknown Verified 12/30/22 23:02 Home Medications Medication Instructions Recorded Confirmed Type atorvastatin 40 mg tablet 40 mg PO HS 04/19/20 12/30/22 History omeprazole 20 mg capsule,delayed 20 mg PO QAM 04/19/20 12/30/22 History release Past Med/Surg History Medical History (Updated 12/31/22 @ 05:02 by Daquan Mabry MD) Chronic low back pain with bilateral sciatica Degenerative disc disease GERD (gastroesophageal reflux disease) controlled History of COVID-19 hx of 2019--mild symptoms, no symptoms now Hyperlipidemia Osteoarthritis Spinal cord stimulator status IMPLANTED APRIL 2020 (AWARE OF REMOTE) Syncope Surgical History History of back surgery (~05/10/20) revision T10 laminectomy/removal spinal cord stimulator/placement 16 lead spinal cord stimulator History of esophagogastroduodenoscopy (EGD) last 09/19/20 @ [facility] History of lumbar surgery lumbar surgery x3 (+ fusion) S/P cervical spinal fusion x2 (good ROM) S/P insertion of spinal cord stimulator Sumpter teeth removed Family History Other No family history of adverse response to anesthesia No significant family history Social History Smoking Status: Current every day smoker Tobacco Type: Cigarettes Cigarettes Per Day: one pack per day; Second Hand Exposure: No; Do You Dip or Chew Tobacco: No; Tobacco Cessation Education Requested by Patient: No Hx Alcohol Use: Yes Alcohol type: beer Hx Substance Use: No Preferred Language: Welsh Communication Ability: Effective Visual Impairment: No Limitations Lemon Picker Required: No Beliefs That Will Affect Care: None Current Living Situation: Spouse Current Living Situation Comment: Lives with and daughter Other Information That Helps Us Care for You: No Feels Safe at Home: Yes Safety Concerns: Feels Safe At This Time Assistive Devices: None Review of Systems Review of Systems: The patient is unable to contribute to ROS due to excessive alcohol intoxication Physical Exam Physical Exam: the patient is unresponsive, well developed and well nourished, normocephalic and atraumatic, lying in bed and in no acute distress. HEENT--PERRL, EOMI, mucous membranes and oropharynx dry. Neck--supple. No JVD. No bruits. Thyroid normal, trachea midline, no adenopathy. Heart--normal S1 and S2. No murmurs, rubs or gallops. Lungs--clear bilaterally, no respiratory distress, no accessory muscle use. Abdomen--normal bowel sounds and soft. Nontender. Nondistended Extremities--no cyanosis or clubbing. No edema. There are good distal pulses b/l. Dermatologic--normal skin turgor, normal color, no abnormal lymph nodes, no rash. Neurologic--cranial nerves II through XII grossly intact. Rheumatologic-- limited exam Psychiatric-- sedated due to alcohol intoxication Results & Data Results & Data Vital Signs (Past 12 Hours) Vital Signs Temp Pulse Pulse Resp BP BP Pulse Ox 12/31/22 04:46 79 12/31/22 04:03 86 20 122/81 96 12/31/22 04:22 36.4 C L 73 20 117/71 96 12/31/22 03:30 81 18 93 12/31/22 02:30 76 18 90/60 L 94 12/31/22 02:13 75 12/30/22 22:14 81 12/31/22 01:00 77 16 86/55 L 100 12/30/22 23:30 86 14 96 12/30/22 22:41 80 16 137/90 95 12/30/22 23:03 76 98 12/30/22 22:05 36.4 C L 85 20 137/90 98 O2 Del Method O2 Flow Rate 12/31/22 04:46 12/31/22 04:03 12/31/22 04:22 Room Air 12/31/22 03:30 12/31/22 02:30 Nasal Cannula 4 12/31/22 02:13 12/30/22 22:14 12/31/22 01:00 12/30/22 23:30 Nasal Cannula 6 12/30/22 22:41 Nasal Cannula 6 12/30/22 23:03 Nasal Cannula 6 12/30/22 22:05 Nasal Cannula 6 Laboratory Results Laboratory Results WBC 9.88 K/ul (4.8-10.8) 12/30/22 22:30 RBC 4.15 M/uL (4.70-6.10) L 12/30/22 22:30 Hgb 14.3 g/dl (14.0-18.0) 12/30/22 22:30 Hct 39.1 % (42.0-52.0) L 12/30/22 22:30 MCV 94.2 fL (80.0-100.0) 12/30/22 22:30 MCH 34.5 pg (25.0-34.0) H 12/30/22 22:30 MCHC 36.6 g/dL (32.0-36.0) H 12/30/22 22:30 RDW Std Deviation 42.2 fL (36.4-46.3) 12/30/22 22: RDW Coeff of Martina 12.1 % (11.5-14.5) 12/30/22: Plt Count 224 K/uL (130-400) 12/30/22 22: MPV 11.2 fL (9.4-12.4) 12/30/22 22: Immature Gran % (Auto) 0.2 % 12/30/22: Neut % (Auto) 54.9 % 12/30/22 22:30 Lymph % (Auto) 35.1 % 12/30/22: Ransom % (Auto) 6.7 % 12/30/22: Eos % (Auto) 2.1 % 12/30/22: Baso % (Auto) 1.0 % 12/30/22: Neut # (Auto) 5.42 K/uL (1.40-6.50) 12/30/22 22: Lymph # (Auto) 3.47 K/uL (1.2-3.4) H 12/30/22 22:30 Ransom # (Auto) 0.66 K/uL (0.11-0.59) H 12/30/22 22:30 Eos # (Auto) 0.21 K/uL (0-0.50) 12/30/22 22: Baso # (Auto) 0.10 K/uL (0-0.2) 12/30/22 22: Immature Gran # (Auto) 0.02 K/uL (0.01-0.20) 12/30/22 22: PT 10.0 Seconds (9.0-12.0) 12/30/22 22: INR 0.9 (0.9-1.1) 12/30/22: APTT 25.0 Seconds (21.0-31.0) 12/30/22: PTT Ratio 0.9 12/30/22 22:30 Sodium 138 mmol/L (136-145) 12/30/22 22: Potassium 3.5 mmol/L (3.5-5.1) 12/30/22: Chloride 105 mmol/L (98-107) 07/04/23 22:30 Carbon Dioxide 21 mmol/L (21-32) 12/30/22 22:30 Anion Gap 12 (3-11) H 12/30/22 22:30 BUN 10 mg/dl (6-23) 12/30/22 22:30 Creatinine 0.97 mg/dl (0.6-1.4) 12/30/22 22:30 Est Cr Clr Drug Dosing 109.4 ml/min 12/30/22 22:30 Est GFR ( Amer) 103.6 ml/min 12/30/22 22:30 Est GFR (Non-Af Amer) 89.4 ml/min 12/30/22 22:30 BUN/Creatinine Ratio 10.3 (10-20) 12/30/22 22:30 Glucose 95 mg/dl (70-99(Fasting)) 12/30/22 22: POC Glucose 99 mg/dl (70-99) 12/30/22 22:02 Calcium 8.7 mg/dl (8.6-10.3) 12/30/22 22:30 Magnesium 2.1 mg/dl (1.7-2.4) 12/30/22 22:30 Total Bilirubin 0.3 mg/dl (0.2-1.0) 12/30/22 22:30 AST 27 U/L (13-39) 12/30/22 22:30 ALT 23 U/L (7-52) 12/30/22 22:30 Alkaline Phosphatase 51 U/L (34-104) 12/30/22 22:30 Troponin I High Sens 3.7 pg/ml (0-20) 12/30/22 22:30 Total Protein 6.7 gm/dl (6.0-8.3) 12/30/22 22:30 Albumin 4.4 gm/dl (3.4-5.0) 12/30/22 22:30 Globulin 2.3 gm/dl (2.5-4.0) L 12/30/22 22:30 Albumin/Globulin Ratio 1.9 (0.9-2) 12/30/22 22:30 Lipase 34 U/L (11-82) 12/30/22 22:30 TSH 2.511 uIu/ml (0.300-4.500) 12/30/22 22:30 Urine Color Yellow 12/30/22 22:41 Urine Appearance Clear (Clear) 12/30/22 22:41 Urine pH 5.0 (4.5-7.5) 12/30/22 22:41 Ur Specific Hemphill 1.004 (1.000-1.030) 12/30/22 22:41 Urine Protein Negative (Negative) 12/30/22 22:41 Urine Glucose (UA) Negative (Negative) 12/30/22 22:41 Urine Ketones Negative (Negative) 12/30/22 22:41 Urine Blood Negative (Negative) 12/30/22 22:41 Urine Nitrite Negative (Negative) 12/30/22 22:41 Urine Bilirubin Negative (Negative) 12/30/22 22:41 Urine Urobilinogen Negative (Negative) 12/30/22 22:41 Ur Leukocyte Esterase Negative (Negative) 12/30/22 22:41 Ethyl Alcohol mg/dL 341.0 mg/dl (<10.0) H 12/30/22 22:30 SARS-CoV-2, RNA, NAAT NEGATIVE (NEGATIVE) 12/31/22 00:[address] 12/30/22 22:10 Exam(s): CT HEAD Without Contrast EXAM: CT Head Without Intravenous Contrast CLINICAL HISTORY: Reason for exam: syncope. TECHNIQUE: Axial computed tomography images of the head/brain without intravenous contrast. CTDI is 36.67 mGy and DLP is 624.41 mGy-cm. Automated exposure control was utilized for the study. A dose lowering technique was utilized adhering to the principles of ALARA. COMPARISON: No relevant prior studies available. FINDINGS: No acute intracranial hemorrhage. No midline shift or mass effect. The territorial couch-white matter differentiation is maintained throughout. The ventricles and sulci are commensurate with age. The visualized orbits appear grossly unremarkable. The calvarium is intact. Mucous retention cyst in the RIGHT maxillary sinus. IMPRESSION: No acute intracranial hemorrhage, midline shift, or mass effect. Electronically signed by: Ramses Goldberg MD 12/30/22 22:53 PM Code Status & VTE Plan Code Status full code VTE Prophylaxis Plan VTE Prophylaxis will be ordered: Yes PG Care Time/CCT Total # of Minutes Spent Total Time Spent with Patient: Total time spent is greater than 50% in coordination of care (as documented) at patient's floor/unit and/or counseling patient: Coding Level of Care Code 50436 INT INP/OBS CARE 75MIN Diagnoses Syncope and collapse R55 Alcohol abuse F10.10 Alcohol intoxication F10.929 GERD (gastroesophageal reflux disease) K21.9 Chronic low back pain with bilateral sciatica M54.41; M54.42; G89.29 Hyperlipidemia E78.5 Spinal cord stimulator status Z96.89
[2022-12-31] MEDS: NSS + 20MEQ KCL 20 MEQ/1,000 ML BAG IV SCH ×2 (06:26→13:11)
--- NOTE | 2022-12-31 07:17 | XRay Report ---
XR chest 1V portable HISTORY: syncope COMPARISON: Chest 04/20/2020. FINDINGS: No pneumothorax. No pleural effusions. The cardiac silhouette is normal in size. No focal l jean-claude consolidations to suggest a pneumonia. No evidence for pulmonary edema. Cervical spinal fusion sylvester rdware is noted. Spinal stimulator leads are unchanged in position. IMPRESSION: No acute process. ACT 112: Negative or not required by law. Electronically signed by: Anselmo Quiñonez M.D. 12/31/2022 7:16 AM
[2022-12-31 08:03] LABS: Basophils # (auto) 0.08 K/uL (0-0.2); Basophils % (auto) 1.1 %; Eosinophils # (auto) 0.15 K/uL (0-0.50); Hematocrit (blood only) 39.2 % (42.0-52.0); Immature Granulocytes # (auto) 0.02 K/uL (0.01-0.20); Immature Granulocytes % (auto) 0.3 %; Lymphocytes # (auto) 1.93 K/uL (1.2-3.4); Lymphocytes % (auto) 26.4 %; Mean Corpuscular Hgb Conc 35.7 g/dL (32.0-36.0); Mean Corpuscular Volume 95.1 fL (80.0-100.0); Mean Platelet Volume 11.2 fL (9.4-12.4); Monocytes # (auto) 0.58 K/uL (0.11-0.59); Monocytes % (auto) 7.9 %; Neutrophils # (auto) 4.56 K/uL (1.40-6.50); Neutrophils % (auto) 62.3 %; Platelet Count 207 K/uL (130-400); RDW Coefficient of Variation 12.2 % (11.5-14.5); RDW Standard Deviation 42.7 fL (36.4-46.3); Red Blood Count 4.12 M/uL (4.70-6.10); White Blood Count 7.32 K/ul (4.8-10.8)
[2022-12-31 08:17] LABS: Albumin Globulin Ratio 1.8 (0.9-2); Albumin Level 3.9 gm/dl (3.4-5.0); BUN Creatinine Ratio 9.8 (10-20); Bilirubin,Total 0.3 mg/dl (0.2-1.0); Calcium 8.3 mg/dl (8.6-10.3); Creatinine Clr Calc Pharmacy 115.3 ml/min; Est GFR (African American) 110.4 ml/min; Est GFR (Non-African American) 95.3 ml/min; Globulin 2.2 gm/dl (2.5-4.0); Potassium 4.1 mmol/L (3.5-5.1); Total Protein 6.1 gm/dl (6.0-8.3)
[2022-12-31] MEDS ORDERED: THIAMINE HCL 100 MG in SYRINGE 9 ML IV SCH (09:00)
[2022-12-31] MEDS ORDERED: FOLIC ACID 1 MG in SYRINGE 9.8 ML IV SCH (09:00)
[2022-12-31] MEDS ORDERED: FAMOTIDINE 20 MG in SYRINGE 3 ML IV SCH (09:00)
[2022-12-31] MEDS ORDERED: ENOXAPARIN INJ 40 MG/0.4 ML SYR SQ SCH (09:00)
--- NOTE | 2022-12-31 09:30 | XCELERA ---
[id number]
--- NOTE | 2022-12-31 15:37 | Discharge Summary ---
Date of Service December 31, 2022 Admission HPI Per Admitting Provider HPI and ROS are as noted above, as patient is not able to contribute due to unresponsiveness due to alcohol intoxication Principal Diagnosis alcohol withdrawal Discharge Exam Constitutional WD/WN, vitals as above ENMT external ear and nose normal, oropharynx normal Neck trachea midline, no thyromegaly Respiratory normal respiratory effort, lungs clear to auscultation Discharge Data Allergies Allergy/AdvReac Type Severity Reaction Status Date / Time No Known Allergies Allergy Unknown Verified 12/30/22 23:02 Consultations 12/31/22 01:02 ED Decision to Admit Stat Ordered Studies 12/30/22 22:10 CT head/brain wo con Stat Hospital Course (1) Alcohol abuse: Plan Syncope and collapse- Status post chest compressions by family in the field, due to their concern regarding patient not appearing to be breathing The patient will be admitted to telemetry for serial cardiac enzymes, serial EKG's, cardiac rhythm monitoring and complete echo Alcohol intoxication and unresponsiveness- alcohol level 341.0, this elevated level would explain his syncope. Laboratories otherwise normal Echo and troponin was negative. resumed diet. Patient tolerate this. Patient refused alcohol rehab or information. Patient does not want to go through withdrawal. GERD- resume home meds hyperlipidemia- resume home meds Total Time Total Time Spent Total Time Spent (In Minutes): 32 Discharge Plan Discharge Items Patient Disposition: Home - Self-Care Reason For Visit: SYNCOPE & COLLAPSE, ALCOHOL ABUSE, ALCOHOL INTOX Discharge Diagnosis: alcohol intoxication Condition on Discharge: Fair Activity: Resume your previous activity Non-emergency contact: Primary Care Provider Call non-emergency contact if: you have any medication questions Follow-up/Referrals: Yordy Helton, [employer]UDITOR[employer] [Primary Care Provider] - Diet: Regular Addtl Attending Provider Instructions: Recommend lower alcohol intake. If you have symptoms of withdrawal such as tremors, dizziness, confusion, please seek medical attention. Even though you have had surgery for your back, I do feel you will have improvement with OMT treatment on your left piriformis. WIll recommend followup with a [facility] Provider as a solar consultant to perform OMT. Dr. Magallanes is an option. This will take multiple visits, perhaps twice a week for a month and then once a week. This may help improve your pain. Please followup with PCP in 1-2 weeks. Please folllowup with Pain management. Pending Studies at Discharge: No Stand-Alone Forms: My [facility] [employer], Smoking Cessation Medications and DC Order Prescriptions: Continued atorvastatin 40 mg Tablet 40 mg PO HS omeprazole 20 mg Capsule,Delayed Release(Dr/Ec) 20 mg PO QAM Discharge Orders: Discharge Order (Routine); Ordered 12/31/22 Ordered By: Joel Holcomb Admission Data Admit Date/Time: 12/31/22 02:00 Attending Provider: Joel Holcomb Admit Provider: Daquan Mabry Primary Care Provider: Yordy Helton Other Providers: Daquan Mabry ; [facility] Other Interventions: Discharge Summary Assessment (RN) Last Done: 12/31/22 14:31 Coding Level of Care Code 76345 INP/OBS DISCH >30 MIN Diagnoses Alcohol abuse F10.10
--- NOTE | 2023-01-02 05:47 | Electrocardiogram Report ---
Test Reason : Blood Pressure : / mmHG Vent. Rate : 076 BPM Atrial Rate : 076 BPM P-R Int : 142 ms QRS Dur : 090 ms QT Int : 372 ms P-R-T Axes : 060 041 025 degrees QTc Int : 418 ms Normal sinus rhythm Normal ECG When compared with ECG of 10-AUG-2020 12:53, No significant change was found Confirmed by Adelfo Fulton ([id number]) on 01/02/2023 5:46:37 AM Referred By: REFERRED SELF Confirmed By:Adelfo Fulton
== END 2022-12-31 14:54 | disposition home or self-care (01) ==
LOC: 2S 21:52 → ED 21:52 → SUATTDRO 12-31 02:00 → 2S 12-31 04:00